=== PATIENT | female | born 1945 | race Two or more races ===

== ENCOUNTER 2016-04-21 10:59 | Inpatient (IN) | payer MEDICARE, MEDICAID ==
[~2016-04-21] VITALS: Ht 162.6 cm; Wt 59.0 kg
[2016-04-21] VITALS (7 sets, daily range): BP systolic 101–123; BP diastolic 52–83
[2016-04-21] MEDS ORDERED: GLIMEPIRIDE1 MG ORAL (11:12)
[2016-04-21] MEDS ORDERED: GABAPENTIN300 MG ORAL (11:12)
[2016-04-21] MEDS ORDERED: TYLENOL650 MG/20. ORAL (11:14)
[2016-04-21] MEDS ORDERED: Morphine Sulfate 4mg/ml Inj IVP ONE ×3 (11:15→17:30)
[2016-04-21 11:26] LABS: BASOPHILS % (AUTO) 0.9 % (0.0-2.0); EOSINOPHILS % (AUTO) 1.1 % (0.0-3.0); LYMPHOCYTES % (AUTO) 21.5 % (20.0-45.0); MEAN CORPUSCULAR HEMOGLOBIN 25.9 PG (27.0-31.0); MEAN CORPUSCULAR HGB CONC 30.2 G/DL (32.0-36.0); MEAN CORPUSCULAR VOLUME 86 FL (80-99); MEAN PLATELET VOLUME 6.8 FL (6.5-10.1); MONOCYTES % (AUTO) 4.2 % (1.0-10.0); NEUTROPHILS % (AUTO) 72.3 % (45.0-75.0); PLATELET COUNT 280 K/UL (150-450); RED BLOOD COUNT 4.74 M/UL (4.20-5.40); RED CELL DISTRIBUTION WIDTH 14.5 % (11.6-14.8); WHITE BLOOD COUNT 12.6 K/UL (4.8-10.8)
[2016-04-21 11:36] LABS: ALANINE AMINOTRANSFERASE 9 U/L (3-33); ALBUMIN/GLOBULIN RATIO 0.7 (1.0-2.7); ANION GAP 17 (5-15); ASPARTATE AMINO TRANSFERASE 21 U/L (5-40); CALCIUM 10.8 mg/dL (8.6-10.2); CARBON DIOXIDE 27 mEQ/L (20-30); CHLORIDE 97 mEQ/L (98-107); CREATININE 1.2 mg/dL (0.5-0.9); GLOMERULAR FILTRATION RATE 44.4 mL/min (>60); HEMOLYSIS 3; POTASSIUM 4.3 mEQ/L (3.4-4.9); SODIUM 141 mEQ/L (135-145); TOTAL PROTEIN 7.9 g/dL (6.6-8.7)
[2016-04-21 11:38] LABS: TROPONIN I < 0.30 ng/mL (<=0.30)
[2016-04-21 11:56] LABS: APPEARANCE,URINE TURBID; KETONES,URINE NEGATIVE (NEGATIVE); LEUKOCYTE ESTERASE ,URINE 3+ (NEGATIVE); NITRITE,URINE POSITIVE (NEGATIVE); PH,URINE 9 (4.5-8.0); PROTEIN,URINE 2+ (NEGATIVE); UROBILINOGEN,URINE NORMAL MG/DL (0.0-1.0)
--- NOTE | 2016-04-21 12:17 | Diagnostic Imaging Report ---
Indications: TRAUMA Technique: Two views of the left humerus Comparison: None Findings: There is a transverse fracture of the proximal left humeral shaft, displaced by about 5 mm. The edges are slightly irregular, although definite osteolytic lesion is not demonstrated The bones are osteoporotic. There are multiple old healed left rib fracture deformities. Impression: Positive for left proximal humeral shaft fracture. Although no definite osteolytic lesion is demonstrated, given the slightly irregular edges and history renal cell carcinoma, possibility of pathologic fracture should be entertained Findings discussed by phone with Dr. Williamson in the emergency room at the time of interpretation
[2016-04-21 12:27] LABS: BACTERIA,URINE MODERATE /HPF; RBC,URINE 0-2 /HPF (0 - 2); SQUAMOUS EPITHELIAL CELL,UR FEW /LPF (NONE/OCC); WBC,URINE 0-2 /HPF (0 - 2)
[2016-04-21 12:28] LABS: HYALINE CASTS, URINE 0-2 /LPF; TRIPLE PHOSPHATE CRYSTAL,UR FEW /LPF
[2016-04-21 12:51] LABS: ERYTHROCYTE SEDIMENTATION RATE 92 MM/HR (0-30)
[2016-04-21] MEDS ORDERED: DiphenhydrAMINE 50mg/ml Inj IVP ONE (18:30)
[2016-04-21] MEDS ORDERED: NS 50 ML IV ONE (20:38)
[2016-04-21] MEDS ORDERED: Morphine Sulfate 2mg/ml Inj IVP PRN (21:00)
[2016-04-22] VITALS (7 sets, daily range): BP systolic 100–137; BP diastolic 58–79
--- NOTE | 2016-04-22 00:36 | Emergency Room Report ---
History of Present Illness General Chief Complaint: General Complaint Source: Patient, Family Member, Medical Record Present Illness HPI Patient presents with 2 problems: 1. While turning over in bed last night, she leaned on her L arm and there was a snap. She had increased pain and has been unable to move the arm without severe pain. No numbness. H/O metastatic renal cell carcinoma on chemotherapy. Due for repeat staging workup. 2. While in MD office, had syncopal episode with pallor and MD/staff unable to detect blood pressure transiently (oncologist office). Patient does not remember this. Denies chest pain, palpitations, NVD, dysuria, fever, chills, URI sy, cough, dyspnea, QUINONES. Not eating well for several weeks. Allergies: Coded Allergies: No Known Allergies (Unverified , 04/21/16) Patient History Past Medical History: see triage record Social History: Denies: alcohol use, smoking Social History Narrative with family Reviewed Nursing Documentation: PMH: Agreed, PSxH: Agreed Nursing Documentation-PMH Hx Cardiac Problems: No Hx Hypertension: No Hx Pacemaker: No Hx Asthma: No Hx COPD: No Hx Diabetes: Yes Hx Cancer: Yes - chemo Hx Dialysis: No History Of Psychiatric Problem: Yes - depression Hx Neurological Problems: No Hx Cerebrovascular Accident: No Hx Seizures: No Review of Systems All Other Systems: negative except mentioned in HPI Physical Exam Vital Signs Date Time Temp Pulse Resp B/P Pulse Ox O2 Delivery O2 Flow Rate FiO2 04/21/16 10:59 98.1 84 16 123/64 98 Room Air Sp02 EP Interpretation: reviewed, normal General Appearance: well appearing, no apparent distress, GCS 15 Head: normocephalic Eyes: bilateral eye PERRL, bilateral eye normal inspection ENT: dry mucus membranes Neck: supple Respiratory: chest non-tender, lungs clear, normal breath sounds Cardiovascular #1: regular rate, rhythm Cardiovascular #2: 2+ radial (R) Gastrointestinal: normal inspection, normal bowel sounds, non tender, no mass, non-distended Musculoskeletal: back normal, gait/station normal, normal range of motion - except for L arm which has pain with palpation and any movement. Elbow and wrist without pain. Neurologic: alert, oriented x3, reclamation supervisor III-XII nml as tested, motor strength/tone normal, DTRs symmetric, sensory intact, cerebellar normal, speech normal Psychiatric: mood/affect normal Skin: normal inspection, warm/dry Medical Decision Making Diagnostic Impression: Primary Impression: Syncope Qualified Codes: R55 - Syncope and collapse Additional Impressions: Humerus fracture Qualified Codes: S42.295A - Other nondisplaced fracture of upper end of left humerus, initial encounter for closed fracture Renal call carcinoma ER Course Patient with L arm pain and syncope. Syncope needs evaluation with labs, EKG, CXR. Consider sepsis, arrhythmia, vasovagal. anemia amongst others. Also, exam c/w fracture. Complicated patient with several co-morbidities. Non-focal neuro against HIP HOP PERFORMERS etiology. Xray with fx. Suspect pathologic fracture based on mechanism of injury and appearance on films. Labs with elevated WBC. No pyuria, though + nitrates. Patient needs observation for syncope. Discussed with Dr. Toro, Dr. Linares who requests transfer to [facility]. Wants [facility] for possible tx of path fx. [facility] has no beds. Admit tele Dr. Huff (at request of PMD). Contacted Dr. Richey for consultation. Pain improved with several doses of morphine. Sling applied and neurovasc normal as checked by me. Laboratory Tests Test 04/21/16 11:10 04/21/16 11:30 White Blood Count 12.6 K/UL (4.8-10.8) H Red Blood Count 4.74 M/UL (4.20-5.40) Hemoglobin 12.3 G/DL (12.0-16.0) Hematocrit 40.7 % (37.0-47.0) Mean Corpuscular Volume 86 FL (80-99) Mean Corpuscular Hemoglobin 25.9 PG (27.0-31.0) L Mean Corpuscular Hemoglobin Concent 30.2 G/DL (32.0-36.0) L Red Cell Distribution Width 14.5 % (11.6-14.8) Platelet Count 280 K/UL (150-450) Mean Platelet Volume 6.8 FL (6.5-10.1) Neutrophils (%) (Auto) 72.3 % (45.0-75.0) Lymphocytes (%) (Auto) 21.5 % (20.0-45.0) Monocytes (%) (Auto) 4.2 % (1.0-10.0) Eosinophils (%) (Auto) 1.1 % (0.0-3.0) Basophils (%) (Auto) 0.9 % (0.0-2.0) Erythrocyte Sedimentation Rate 92 MM/HR (0-30) H Prothrombin Time 10.0 SEC (9.30-11.50) Prothrombin Time INR 1.0 (0.9-1.1) PTT 23 SEC (23-33) Sodium Level 141 mEQ/L (135-145) Potassium Level 4.3 mEQ/L (3.4-4.9) Chloride Level 97 mEQ/L (98-107) L Carbon Dioxide Level 27 mEQ/L (20-30) Anion Gap 17 (5-15) H Blood Urea Nitrogen 23 mg/dL (7-23) Creatinine 1.2 mg/dL (0.5-0.9) H Estimate Glomerular Filtration Rate 44.4 mL/min (>60) Glucose Level 268 mg/dL (74-106) H Calcium Level 10.8 mg/dL (8.6-10.2) H Total Bilirubin 0.3 mg/dL (0.0-1.2) Aspartate Amino Transferase (AST) 21 U/L (5-40) Alanine Aminotransferase (ALT) 9 U/L (3-33) Alkaline Phosphatase 149 U/L (35-104) H Total Creatine Kinase 19 U/L (26-140) L Troponin I < 0.30 ng/mL (<=0.30) Pro-B-Type Natriuretic Peptide 97 pg/mL (0-125) Total Protein 7.9 g/dL (6.6-8.7) Albumin 3.4 g/dL (3.5-5.2) L Globulin 4.5 g/dL Albumin/Globulin Ratio 0.7 (1.0-2.7) L Urine Color Yellow Urine Appearance Turbid Urine pH 9 (4.5-8.0) Urine Specific [place] 1.010 (1.005-1.035) Urine Protein 2+ (NEGATIVE) H Urine Glucose (UA) Negative (NEGATIVE) Urine Ketones Negative (NEGATIVE) Urine Occult Blood 1+ (NEGATIVE) H Urine Nitrite Positive (NEGATIVE) H Urine Bilirubin Negative (NEGATIVE) Urine Urobilinogen Normal MG/DL (0.0-1.0) Urine Leukocyte Esterase 3+ (NEGATIVE) H Urine RBC 0-2 /HPF (0 - 2) Urine WBC 0-2 /HPF (0 - 2) Urine Squamous Epithelial Cells Few /LPF (NONE/OCC) Urine Triple Phosphate Crystals Few /LPF (NONE) H Urine Bacteria Moderate /HPF (NONE) H Urine Hyaline Casts 0-2 /LPF (NONE) H EKG Diagnostic Results Rate: normal Rhythm: NSR ST Segments: no acute changes Rhythm Strip Diag. Results EP Interpretation: yes Rhythm: NSR, no PVC's, no ectopy Last Vital Signs Date Time Temp Pulse Resp B/P Pulse Ox O2 Delivery O2 Flow Rate FiO2 04/22/16 00:20 98.1 74 15 113/69 96 Room Air Status: improved Disposition: ADMITTED INPATIENT Condition: Serious Referrals: YOANA TORO (PCP) Sukhjinder Williamson M.D. Apr 22, 2016 00:36
[2016-04-22] MEDS: Morphine Sulfate 4mg/ml Inj IVP PRN ×2 (01:14→08:08)
[2016-04-22] MEDS: NovoLOG Insulin Flexpen SUBQ SCH ×5 (06:40→21:10)
[2016-04-22 08:07] LABS: BASOPHILS % (AUTO) 1.2 % (0.0-2.0); EOSINOPHILS % (AUTO) 5.3 % (0.0-3.0); LYMPHOCYTES % (AUTO) 40.9 % (20.0-45.0); MEAN CORPUSCULAR HEMOGLOBIN 26.5 PG (27.0-31.0); MEAN CORPUSCULAR HGB CONC 30.6 G/DL (32.0-36.0); MEAN CORPUSCULAR VOLUME 87 FL (80-99); MEAN PLATELET VOLUME 6.7 FL (6.5-10.1); MONOCYTES % (AUTO) 7.2 % (1.0-10.0); NEUTROPHILS % (AUTO) 45.3 % (45.0-75.0); PLATELET COUNT 231 K/UL (150-450); RED BLOOD COUNT 4.22 M/UL (4.20-5.40); RED CELL DISTRIBUTION WIDTH 14.6 % (11.6-14.8); WHITE BLOOD COUNT 7.3 K/UL (4.8-10.8)
[2016-04-22] MEDS: Heparin 5000 units/ml inj SUBQ SCH ×3 (08:09→21:09)
[2016-04-22 08:19] LABS: CALCIUM 10.2 mg/dL (8.6-10.2); GLOMERULAR FILTRATION RATE 54.8 mL/min (>60)
--- NOTE | 2016-04-22 16:21 | History & Physical ---
ANNETTE GALAVIZ M.D. Apr 22, 2016 16:21
--- NOTE | 2016-04-22 17:15 | History & Physical ---
History and Physical History & Physicial H&P dictated [id number] ANNETTE GALAVIZ M.D. Apr 22, 2016 17:15
[2016-04-22] MEDS ORDERED: Morphine Sulfate 2mg/ml Inj IVP PRN (17:30)
[2016-04-22] MEDS ORDERED: Morphine Sulfate 4mg/ml Inj IVP PRN (17:30)
[2016-04-22] MEDS: traMADol 50mg tab ORAL PRN (19:28)
--- NOTE | 2016-04-22 22:17 | Consultation ---
DATE OF CONSULTATION: 04/22/2016 ORTHOPEDIC CONSULTATION CONSULTING PHYSICIAN: Jurgen Richey M.D. REQUESTING PHYSICIAN: Sukhjinder Huff M.D. CHIEF COMPLAINT: Left arm pain. HISTORY OF PRESENT ILLNESS: The patient is 70-year-old female with a history of renal cell carcinoma, who had a pain in the left shoulder. She subsequently was brought to the emergency room where she was diagnosed with nondisplaced pathologic proximal humerus fracture. Orthopedic consultation was obtained for further care and recommendations. PAST MEDICAL HISTORY: Reviewed from the intake chart. PAST SURGICAL HISTORY: Reviewed from the intake chart. MEDICATIONS: Reviewed from the intake chart. PHYSICAL EXAMINATION: GENERAL: The patient is alert and oriented. She is resting comfortably in bed. VITAL SIGNS: Afebrile. Stable vital signs. EXTREMITIES: Left shoulder examination shows pain along the proximal humerus. NEUROVASCULAR: Normal. IMAGING: Imaging studies show what appears to be a transverse fracture of the proximal third of the humerus minimally displaced. ASSESSMENT: 1. Renal cell carcinoma. 2. Possible metastatic pathologic proximal humerus fracture. DISCUSSION: At this point, given her history of renal cell carcinoma, I think it is reasonable to transfer her to [facility] for a definitive operative treatment with either Dr. Cristiano Crowder or Dr. Sukhjinder Hargrove. Both are orthopedic tumor oncologist doctors, who currently take care of this. We will work on transfer accordingly. In the meantime, we will try to order Lu brace for comfort. Jurgen Richey M.D. DR: YOVANI JOB#: [id number] CC:
[2016-04-23 00:18] VITALS: BP 129/65
--- NOTE | 2016-04-23 03:28 | History and Physical Report ---
DATE OF ADMISSION: 04/21/2016 REASON FOR ADMISSION: Near syncope and pathological fracture of the left humerus. 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 Toro after the patient was reporting left arm pain for three days. The patient also had hypotension while at Dr. Toro's office with a blood pressure being so low. The patient had presyncope however, does not seen. She is currently getting chemotherapy with Dr. Toro for metastatic renal cancer. At this time, the patient only reports the left arm pain. She denies any shortness of breath or chest pain. X-ray done in the emergency room here at [facility] revealed a left proximal humeral shaft fracture that appears to be consistent with pathological fracture in patient with a malignant stage IV renal cell adenocarcinoma with mets to bone . PAST MEDICAL HISTORY: Includes stage IV renal cell adenocarcinoma with mets to the lungs, femur, knee, and spine and bilateral knee replacement. Recent removal of right knee hardware and synovial excision on 03/01/2016, diabetes, hypertension, chronic DVT of both legs, malnutrition, and anemia of chronic disease. PAST SURGICAL HISTORY: Bilateral total knee replacement as mentioned above. MEDICATIONS: Reviewed in the medical records. ALLERGIES: She has no allergies. SOCIAL HISTORY: The patient does not drink alcohol, smoke, or use any drugs. REVIEW OF SYSTEMS: A 10-point review of systems is negative except for pertinent positives as mentioned above. PHYSICAL EXAMINATION: VITAL SIGNS: Temperature is 98, pulse is 89, respiratory rate 18, blood pressure 116/67, and O2 saturation 95% on room air. GENERAL: The patient is no acute distress. The patient is awake, alert, and oriented x3. HEENT: Normocephalic/atraumatic. NECK: Supple. No JVD. LUNGS: Clear to auscultation bilaterally. No crackles, rhonchi, or rales. CARDIOVASCULAR: Regular rate and rhythm. Normal S1, S2. ABDOMEN: Soft, nontender, and nondistended. EXTREMITIES: Left arm in sling. PSYCHIATRIC: Appropriate mood and affect. NEUROLOGIC: The patient can move all extremities and has sensation . LABORATORY AND DIAGNOSTIC DATA: Sodium is 137, potassium 4, chloride 101, CO2 27, BUN 22, and creatinine 1. CBC, white count of 7.3, hemoglobin 11.2, hematocrit 36.5, and platelet count 231,000. ESR 92. UA is negative. X-ray of left arm shows left proximal humeral fracture possibly pathologic fracture. EKG shows normal sinus rhythm. No PVC. ASSESSMENT AND PLAN: 1. Left humeral shaft fracture most likely secondary to metastasis from renal cell cancer. 2. Malignant renal cell cancer with metastases to bone, lungs, femur, knee and spine. 3. Diabetes. 4. Hypertension. 5. Chronic deep venous thrombosis of legs. 6. Malnutrition. 7. Anemia of chronic disease. 8. Bilateral knee replacement. Decrease in right total knee replacement removal on 03/01/2016. 9. Presyncope secondary to hypotension. 10. Hypotension. PLAN: 1. Admit to med/surg. 2. CT of head given presyncope metastasis to rule out brain mets. 3. Orthopedic consult. 4. Pain management. 5. Oncology to follow. 6. The patient will eventually need to follow up with Dr. Cristiano Crowder for surgical repair. 7. CT head is pending. 8. Resume home medications. 9. Ultrasound of both lower extremities. Sukhjinder Huff MD DR: Jacqueline JOB#: [id number] CC:
[2016-04-23 04:32] VITALS: BP 121/64
[2016-04-23] MEDS: NovoLOG Insulin Flexpen SUBQ SCH ×4 (07:00→21:00)
[2016-04-23 07:58] VITALS: BP 133/68
[2016-04-23] MEDS: Heparin 5000 units/ml inj SUBQ SCH ×2 (09:20→21:20)
[2016-04-23] MEDS ORDERED: Norco 10mg/325mg tab ORAL PRN (09:45)
--- NOTE | 2016-04-23 09:46 | Consultation ---
History of Present Illness General Date patient seen: Apr 23, 2016 Chief Complaint: General Complaint Present Illness Allergies: Coded Allergies: No Known Allergies (Unverified , 04/21/16) Medication History Scheduled Gabapentin* (Gabapentin*), 300 MG ORAL BEDTIME, (Reported) Glimepiride* (Glimepiride*), 1 MG ORAL BEFORE BREAKFAST, (Reported) Scheduled PRN Acetaminophen (Acetaminophen), 500 MG ORAL Q6H PRN for Prn Headache/Temp > 101, (Reported) Patient History Healthcare decision maker Resuscitation status Full Code Advanced Directive on File Physical Exam Last 24 Hour Vital Signs Date Time Temp Pulse Resp B/P Pulse Ox O2 Delivery O2 Flow Rate FiO2 04/23/16 07:58 96.1 80 18 133/68 93 Room Air 04/23/16 04:32 98.3 80 18 121/64 94 Room Air 04/23/16 04:00 79 04/23/16 00:18 98.4 88 19 129/65 95 Room Air 04/23/16 00:00 89 04/22/16 20:00 98.5 85 18 120/68 95 Room Air 04/22/16 19:51 87 04/22/16 16:00 98.0 89 18 116/67 95 Room Air 04/22/16 15:49 92 04/22/16 12:11 97.0 84 18 137/79 97 Room Air 04/22/16 12:00 78 Intake and Output 04/22/16 04/23/16 18:59 06:59 Intake Total 1065 ml 375 ml Output Total 500 ml Balance 565 ml 375 ml Intake Oral 240 ml 300 ml IV Total 825 ml 75 ml Output Urine Total 500 ml # Voids 5 Height (Feet): 5 Height (Inches): 4.00 Weight (Pounds): 130 Medications Current Medications Medications (Trade) Dose Ordered Sig/Osiel Route PRN Reason Start Time Stop Time Status Last Admin Dose Admin Acetaminophen (Tylenol) 650 mg Q4H PRN ORAL FEVER 04/22/16 17:39 05/21/16 20:59 Dextrose (Dextrose 50%) STAT PRN IV Hypoglycemia 04/21/16 21:00 05/21/16 20:59 Gabapentin (Neurontin) 300 mg BEDTIME ORAL 04/21/16 21:00 05/21/16 20:59 Heparin Sodium (Porcine) (Heparin 5000 units/ml) 5,000 units EVERY 12 HOURS SUBQ 04/21/16 21:00 05/21/16 20:59 04/23/16 09:20 Insulin Aspart BEFORE MEALS AND HS SUBQ 04/21/16 21:00 05/21/16 20:59 04/23/16 07:00 Morphine Sulfate (Morphine Sulfate) 2 mg Q4HR PRN IVP Moderate Breakthru Pain (5-7) 04/22/16 17:30 04/29/16 17:29 Morphine Sulfate (Morphine Sulfate) 4 mg Q4HR PRN IVP Severe Breakthru Pain (>7) 04/22/16 17:30 04/29/16 17:29 Ondansetron HCl (Zofran ODT) 4 mg Q6H PRN ORAL Nausea & Vomiting 04/23/16 00:15 05/23/16 00:14 Oxycodone/ Acetaminophen (Percocet 10/325) 1 tab Q4H PRN ORAL moderate or severe pain 04/22/16 17:30 04/29/16 17:29 Sodium Chloride (Sodium Chloride 1000ml bag) 1,000 ml @ 75 mls/hr [id number] IV 04/21/16 21:00 05/21/16 20:59 04/22/16 10:24 Tramadol HCl (Ultram) 100 mg Q6H PRN ORAL Mild Pain (Pain Scale 1-3) 04/22/16 17:30 04/29/16 17:29 04/22/16 19:28 Assessment/Plan Assessment/Plan (1) Left humeral shaft fracture most likely secondary to metastasis from renal cell cancer (2) Malignant renal cell cancer with metastases to bone, lungs (3) Left Upper Extremity pain Seen dictated ALEXUS SWARTZ Apr 23, 2016 09:46
[2016-04-23 11:30] VITALS: BP 146/81
--- NOTE | 2016-04-23 12:28 | Consultation ---
DATE OF CONSULTATION: 04/23/2016 PAIN MANAGEMENT CONSULTATION: CONSULTING PHYSICIAN: Santy Satcy M.D. REFERRING PHYSICIAN: Sukhjinder Martinez M.D. CHIEF COMPLAINT: Left upper extremity pain. HISTORY OF PRESENT ILLNESS: This is a 70-year-old female, who is being seen on the telemetry floor of [facility] for initial complaints of pain management. The patient has a history of renal cell adenocarcinoma with metastasis to the lungs and bone and was found to have a syncopal episode due to low blood pressure and is receiving chemotherapy with tenderness here complaining of left upper extremity pain and was found to have left proximal hemostat fracture, which is concerned with pathological fracture and has been seen by Dr. Richey orthopedic surgeon, who would like to transfer the patient to [facility] for higher level of care due to the pathological fracture and at this time, the patient was on a morphine 2 to 4 mg IV every four hours as needed for moderate and severe breakthrough pain, Percocet 10/325 mg one tablet every four hours as needed for moderate or severe pain, tramadol 100 mg tablet every six hours as needed for mild pain. The patient is comfortable in bed at this time. Discussed care with patient's daughter and the patient has no other complaints at this time. PAST MEDICAL HISTORY: Renal cell adenocarcinoma, metastasis to the lung and bone, diabetes, hypertension, chronic DVT, malnutrition, and anemia of chronic disease. PAST SURGICAL HISTORY: Bilateral knee replacement and removal of hardware in the right knee. SOCIAL HISTORY: Denies smoking, tobacco, drinking alcohol, or drug abuse. ALLERGIES: No known drug allergies. MEDICATIONS: Neurontin, glyburide, and [place]. REVIEW OF SYSTEMS: Denies rash, fever, chills, sweating, dizziness, drowsiness, blurred vision, sore throat, or change in her weight. No shortness of breath or chest pain. No nausea, vomiting, or blood in stool or urine. No bowel or bladder. There is no dysuria. She is complaining of left upper extremity pain and generalized weakness. PHYSICAL EXAMINATION: GENERAL: Alert, awake, and oriented. The patient is Romanian speaking and be interpreted. VITAL SIGNS: Blood pressure 133/68, heart rate is 80, oxygen 92%, respirations 18, temperature 97.1 degrees Fahrenheit. Height 5 feet 4 inches and weight is 130 pounds. NECK: Range of motion is full in all directions. No tenderness. No adenopathy. LUNGS: Decreased breath sounds bilaterally. ABDOMEN: Tenderness to palpation. BACK: Range of motion is decreased in flexion and extension with tenderness to paraspinal muscles. No tenderness to trapezius or rhomboid muscles. EXTREMITIES: Upper extremity motion is decreased due to the patient's clinical condition with tenderness to palpation in the left upper extremity in sling at this time. No cyanosis. No clubbing. With edema noted. Sensory is reduced. No adenopathy. Lower extremity motion is decreased due to the patient's clinical condition. No cyanosis. No clubbing. No edema. Sensory is intact. Reflexes are not obtainable. ASSESSMENT AND PLAN: This is a 70-year-old female with 1. Left humeral skull fracture most likely secondary to metastasis from renal cell cancer. 2. Malignant renal cell cancer with metastasis to the bone and lungs. 3. Left upper extremity pain. The patient will be discontinued off the morphine intravenous. Continue the Percocet 10/325 mg one tablet every four hours as needed for mild pain and tramadol 100 mg tablet every six hours as needed for mild pain and will be started on [place] 10/325 mg one tablet every six hours as needed for moderate pain. The patient's care again was discussed with daughter. Orthopedic surgeon has seen the patient who would like to transfer the patient to [facility] for higher level of care due to pathological fracture in the left upper extremity. The patient was discussed with Dr. Irvin and Dr. Irvin concurred. We will follow the patient. Thank you very much for the courtesy of this consultation. Sukhjinder Huff MD JINA Forte DR: NANDO JOB#: [id number] CC: JOSE ROBERTO
[2016-04-23 16:00] VITALS: BP 112/69
--- NOTE | 2016-04-23 18:18 | Internal Med Progress Note ---
Subjective Date of Service: Apr 23, 2016 Physician Name Steven Ching Attending Physician Sukhjinder Huff M.D. Current Medications Medications (Trade) Dose Ordered Sig/Osiel Route PRN Reason Start Time Stop Time Status Last Admin Dose Admin Acetaminophen (Tylenol) 650 mg Q4H PRN ORAL FEVER 04/22/16 17:39 05/21/16 20:59 Acetaminophen/ Hydrocodone Bitart ([place] 10/325) 1 ea Q6H PRN ORAL moderate pain 04/23/16 09:45 04/30/16 09:44 Dextrose (Dextrose 50%) STAT PRN IV Hypoglycemia 04/21/16 21:00 05/21/16 20:59 Gabapentin (Neurontin) 300 mg BEDTIME ORAL 04/21/16 21:00 05/21/16 20:59 Heparin Sodium (Porcine) (Heparin 5000 units/ml) 5,000 units EVERY 12 HOURS SUBQ 04/21/16 21:00 05/21/16 20:59 04/23/16 09:20 Insulin Aspart BEFORE MEALS AND HS SUBQ 04/21/16 21:00 05/21/16 20:59 04/23/16 11:34 Lidocaine (Lidoderm 5% PATCH) 1 patch DAILY TDERMAL 04/23/16 11:00 05/23/16 10:59 04/23/16 11:00 Ondansetron HCl (Zofran ODT) 4 mg Q6H PRN ORAL Nausea & Vomiting 04/23/16 00:15 05/23/16 00:14 Oxycodone/ Acetaminophen (Percocet 10/325) 1 tab Q4H PRN ORAL severe pain 04/23/16 13:30 04/30/16 13:29 04/23/16 12:37 Sodium Chloride (Sodium Chloride 1000ml bag) 1,000 ml @ 75 mls/hr [id number] IV 04/21/16 21:00 05/21/16 20:59 04/23/16 12:38 Tramadol HCl (Ultram) 100 mg Q6H PRN ORAL Mild Pain (Pain Scale 1-3) 04/22/16 17:30 04/29/16 17:29 04/22/16 19:28 Allergies: Coded Allergies: No Known Allergies (Unverified , 04/21/16) ROS Limited/Unobtainable: No Constitutional: Reports: no symptoms HEENT: Reports: no symptoms Cardiovascular: Reports: no symptoms Gastrointestinal/Abdominal: Reports: no symptoms Genitourinary: Reports: no symptoms Neurologic/Psychiatric: Reports: no symptoms Subjective 70 YO F with pathologic fracture left humerus and renal cell cancer. Cover for Int Med-Dr Huff. C/O left arm pain. Objective Last Vital Signs Date Time Temp Pulse Resp B/P Pulse Ox O2 Delivery O2 Flow Rate FiO2 04/23/16 16:00 97.9 88 20 112/69 97 Room Air General Appearance: WD/WN, alert, mild distress EENT: normal ENT inspection Neck: non-tender, normal alignment, supple Cardiovascular: normal peripheral pulses, normal rate, regular rhythm, no gallop/murmur, no JVD Respiratory/Chest: chest wall non-tender, no accessory muscle use, decreased breath sounds, crackles/rales, rhonchi - bilaterally, expiratory wheezing Abdomen: normal bowel sounds, non tender, soft, no organomegaly, no mass Extremities: normal range of motion, other - left arm pain Neurologic: orthodontic laboratory technician II-XII grossly normal, no motor/sensory deficits Skin: normal pigmentation, warm/dry Microbiology Date/Time Source Procedure Growth Status 04/21/16 14:20 Blood Blood Culture - Preliminary NO GROWTH AFTER 24 HOURS Resulted 04/21/16 14:00 Blood Blood Culture - Preliminary Staphylococcus Sp Coag Neg Resulted 04/21/16 11:30 Urine,Clean Catch Urine Culture - Preliminary Gram Negative Bacillus 1 Resulted Intake and Output 04/22/16 04/23/16 19:00 07:00 Intake Total 1065 ml 375 ml Output Total 500 ml Balance 565 ml 375 ml Intake Oral 240 ml 300 ml IV Total 825 ml 75 ml Output Urine Total 500 ml # Voids 5 Assessment/Plan Problem List: (1) 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 Currently on chemotherapy. See onc note. (2) Diabetes mellitus Assessment & Plan: Cont novolog sliding scale. (3) HTN (hypertension) Assessment & Plan: Admitted with hypotension. (4) Deep venous thrombosis of both lower extremities (5) Humerus fracture Assessment & Plan: See ortho note. Needs orthopedic tumor oncologist consult at [facility] (6) Pathologic fracture (7) Pre-syncope Assessment & Plan: Await CT brain to rule out mets. Status: not improved STEVEN CHING Apr 23, 2016 18:18
[2016-04-23 20:00] VITALS: BP 137/79
[2016-04-24 00:29] VITALS: BP 125/70
[2016-04-24 04:27] VITALS: BP 128/79
[2016-04-24] MEDS: NovoLOG Insulin Flexpen SUBQ SCH ×4 (06:23→20:46)
[2016-04-24 06:47] LABS: BASOPHILS % (AUTO) 1.6 % (0.0-2.0); EOSINOPHILS % (AUTO) 4.8 % (0.0-3.0); LYMPHOCYTES % (AUTO) 39.7 % (20.0-45.0); MEAN CORPUSCULAR HEMOGLOBIN 26.1 PG (27.0-31.0); MEAN CORPUSCULAR HGB CONC 30.2 G/DL (32.0-36.0); MEAN CORPUSCULAR VOLUME 87 FL (80-99); MEAN PLATELET VOLUME 6.6 FL (6.5-10.1); MONOCYTES % (AUTO) 7.1 % (1.0-10.0); NEUTROPHILS % (AUTO) 46.8 % (45.0-75.0); PLATELET COUNT 226 K/UL (150-450); RED BLOOD COUNT 3.61 M/UL (4.20-5.40); RED CELL DISTRIBUTION WIDTH 13.8 % (11.6-14.8); WHITE BLOOD COUNT 6.7 K/UL (4.8-10.8)
[2016-04-24 07:04] LABS: ANION GAP 11 (5-15); CALCIUM 9.7 mg/dL (8.6-10.2); CARBON DIOXIDE 24 mEQ/L (20-30); CHLORIDE 106 mEQ/L (98-107); CREATININE 0.8 mg/dL (0.5-0.9); GLOMERULAR FILTRATION RATE > 60 mL/min (>60); HEMOLYSIS 5; POTASSIUM 4.6 mEQ/L (3.4-4.9); SODIUM 141 mEQ/L (135-145)
[2016-04-24 08:00] VITALS: BP 127/78
[2016-04-24] MEDS: Heparin 5000 units/ml inj SUBQ SCH ×2 (08:28→20:46)
[2016-04-24 12:00] VITALS: BP 135/73
--- NOTE | 2016-04-24 13:37 | Internal Med Progress Note ---
Subjective Date of Service: Apr 24, 2016 Physician Name Steven Ching Attending Physician Sukhjinder Huff M.D. Current Medications Medications (Trade) Dose Ordered Sig/Osiel Route PRN Reason Start Time Stop Time Status Last Admin Dose Admin Acetaminophen (Tylenol) 650 mg Q4H PRN ORAL FEVER 04/22/16 17:39 05/21/16 20:59 Acetaminophen/ Hydrocodone Bitart ([place] 10/325) 1 ea Q6H PRN ORAL moderate pain 04/23/16 09:45 04/30/16 09:44 Dextrose (Dextrose 50%) STAT PRN IV Hypoglycemia 04/21/16 21:00 05/21/16 20:59 Gabapentin (Neurontin) 300 mg BEDTIME ORAL 04/21/16 21:00 05/21/16 20:59 04/23/16 21:18 Heparin Sodium (Porcine) (Heparin 5000 units/ml) 5,000 units EVERY 12 HOURS SUBQ 04/21/16 21:00 05/21/16 20:59 04/24/16 08:28 Insulin Aspart BEFORE MEALS AND HS SUBQ 04/21/16 21:00 05/21/16 20:59 04/24/16 12:23 Lidocaine (Lidoderm 5% PATCH) 1 patch DAILY TDERMAL 04/23/16 11:00 05/23/16 10:59 04/24/16 08:31 Ondansetron HCl (Zofran ODT) 4 mg Q6H PRN ORAL Nausea & Vomiting 04/23/16 00:15 05/23/16 00:14 Oxycodone/ Acetaminophen (Percocet 10/325) 1 tab Q4H PRN ORAL severe pain 04/23/16 13:30 04/30/16 13:29 04/24/16 03:20 Sodium Chloride (Sodium Chloride 1000ml bag) 1,000 ml @ 75 mls/hr [id number] IV 04/21/16 21:00 05/21/16 20:59 04/24/16 02:12 Tramadol HCl (Ultram) 100 mg Q6H PRN ORAL Mild Pain (Pain Scale 1-3) 04/22/16 17:30 04/29/16 17:29 04/22/16 19:28 Allergies: Coded Allergies: No Known Allergies (Unverified , 04/21/16) Subjective 70 YO F with pathologic fracture left humerus and renal cell cancer. Cover for Int Med-Dr Huff. C/O left arm pain. Objective Last Vital Signs Date Time Temp Pulse Resp B/P Pulse Ox O2 Delivery O2 Flow Rate FiO2 04/24/16 08:00 97.3 75 18 127/78 97 Room Air Laboratory Tests Test 04/24/16 06:00 White Blood Count 6.7 K/UL (4.8-10.8) Red Blood Count 3.61 M/UL (4.20-5.40) L Hemoglobin 9.4 G/DL (12.0-16.0) L Hematocrit 31.3 % (37.0-47.0) L Mean Corpuscular Volume 87 FL (80-99) Mean Corpuscular Hemoglobin 26.1 PG (27.0-31.0) L Mean Corpuscular Hemoglobin Concent 30.2 G/DL (32.0-36.0) L Red Cell Distribution Width 13.8 % (11.6-14.8) Platelet Count 226 K/UL (150-450) Mean Platelet Volume 6.6 FL (6.5-10.1) Neutrophils (%) (Auto) 46.8 % (45.0-75.0) Lymphocytes (%) (Auto) 39.7 % (20.0-45.0) Monocytes (%) (Auto) 7.1 % (1.0-10.0) Eosinophils (%) (Auto) 4.8 % (0.0-3.0) H Basophils (%) (Auto) 1.6 % (0.0-2.0) Sodium Level 141 mEQ/L (135-145) Potassium Level 4.6 mEQ/L (3.4-4.9) Chloride Level 106 mEQ/L (98-107) Carbon Dioxide Level 24 mEQ/L (20-30) Anion Gap 11 (5-15) Blood Urea Nitrogen 15 mg/dL (7-23) Creatinine 0.8 mg/dL (0.5-0.9) Estimat Glomerular Filtration Rate > 60 mL/min (>60) Glucose Level 101 mg/dL (74-106) Calcium Level 9.7 mg/dL (8.6-10.2) Microbiology Date/Time Source Procedure Growth Status 04/21/16 14:20 Blood Blood Culture - Preliminary NO GROWTH AFTER 48 HOURS Resulted 04/21/16 14:00 Blood Blood Culture - Final Staphylococcus Sp Coag Neg Complete Intake and Output 04/23/16 04/24/16 19:00 07:00 Intake Total 1015 ml 1172.5 ml Output Total 400 ml Balance 615 ml 1172.5 ml Intake Oral 240 ml 260 ml IV Total 775 ml 912.5 ml Output Urine Total 400 ml # Voids 2 Objective General Appearance: WD/WN, alert, mild distress EENT: normal ENT inspection Neck: non-tender, normal alignment, supple Cardiovascular: normal peripheral pulses, normal rate, regular rhythm, no gallop/murmur, no JVD Respiratory/Chest: chest wall non-tender, no accessory muscle use, decreased breath sounds, crackles/rales, rhonchi - bilaterally, expiratory wheezing Abdomen: normal bowel sounds, non tender, soft, no organomegaly, no mass Extremities: normal range of motion, other - left arm pain 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 Currently on chemotherapy. See onc note. (2) Diabetes mellitus Assessment & Plan: Cont novolog sliding scale. (3) HTN (hypertension) Assessment & Plan: Admitted with hypotension. (4) Deep venous thrombosis of both lower extremities (5) Humerus fracture Assessment & Plan: See ortho note. Needs orthopedic tumor oncologist consult at [facility] (6) Pathologic fracture (7) Pre-syncope Assessment & Plan: Await CT brain to rule out mets. Assessment/Plan Transfer to [facility] when bed available. STEVEN CHING Apr 24, 2016 13:37
[2016-04-24 16:00] VITALS: BP_SYST 132; BP_SYST 139; BP_DIAS 70; BP_DIAS 80
[2016-04-24] MEDS: traMADol 50mg tab ORAL PRN (18:52)
[2016-04-24 20:00] VITALS: BP 144/73
[2016-04-25] VITALS: BP 162/77
[2016-04-25 04:00] VITALS: BP 141/73
[2016-04-25] MEDS: NovoLOG Insulin Flexpen SUBQ SCH ×4 (06:30→22:30)
[2016-04-25 07:46] LABS: BASOPHILS % (AUTO) 1.6 % (0.0-2.0); EOSINOPHILS % (AUTO) 5.8 % (0.0-3.0); LYMPHOCYTES % (AUTO) 44.8 % (20.0-45.0); MEAN CORPUSCULAR HEMOGLOBIN 27.3 PG (27.0-31.0); MEAN CORPUSCULAR HGB CONC 31.6 G/DL (32.0-36.0); MEAN CORPUSCULAR VOLUME 86 FL (80-99); MEAN PLATELET VOLUME 7.1 FL (6.5-10.1); MONOCYTES % (AUTO) 6.8 % (1.0-10.0); PLATELET COUNT 223 K/UL (150-450); RED BLOOD COUNT 3.82 M/UL (4.20-5.40); RED CELL DISTRIBUTION WIDTH 14.4 % (11.6-14.8); WHITE BLOOD COUNT 5.9 K/UL (4.8-10.8)
[2016-04-25 08:00] VITALS: BP 125/74
[2016-04-25 08:11] LABS: ANION GAP 13 (5-15); CARBON DIOXIDE 25 mEQ/L (20-30); CHLORIDE 101 mEQ/L (98-107); CREATININE 0.8 mg/dL (0.5-0.9); GLOMERULAR FILTRATION RATE > 60 mL/min (>60); HEMOLYSIS 6; POTASSIUM 3.9 mEQ/L (3.4-4.9); SODIUM 139 mEQ/L (135-145)
[2016-04-25] MEDS: Heparin 5000 units/ml inj SUBQ SCH ×2 (08:38→22:28)
--- NOTE | 2016-04-25 10:15 | General Progress Note ---
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 Pt was d/w Dr. Irvin and he concurred. Subjective Date patient seen: Apr 25, 2016 Time patient seen: 08:00 - am Allergies: Coded Allergies: No Known Allergies (Unverified , 04/21/16) Subjective REVIEW OF SYSTEMS: Denies rash, fever, chills, sweating, dizziness, drowsiness, blurred vision, sore throat, or change in her weight. No shortness of breath or chest pain. No nausea, vomiting, or blood in stool or urine. No bowel or bladder. There is no dysuria. She is complaining of left upper extremity pain and generalized weakness. SUBJECTIVE: Patient is being interpreted due to speaking Japanese. Pain has been tolerated on the [place], Percocet and tramadol as needed. Objective Last 24 Hour Vital Signs Date Time Temp Pulse Resp B/P Pulse Ox O2 Delivery O2 Flow Rate FiO2 04/25/16 08:00 74 04/25/16 04:00 97.5 74 18 141/73 98 Room Air 04/25/16 04:00 71 04/25/16 00:00 97.2 75 16 162/77 94 Room Air 04/25/16 00:00 71 04/24/16 20:00 98.1 72 21 144/73 94 Room Air 04/24/16 20:00 72 04/24/16 16:00 97.9 88 20 139/80 98 Room Air 04/24/16 16:00 89 04/24/16 15:56 97.9 04/24/16 12:00 83 04/24/16 12:00 97.5 78 18 135/73 98 Room Air Intake and Output 04/24/16 04/25/16 19:00 07:00 Intake Total 1400 ml 1327 ml Balance 1400 ml 1327 ml Intake Oral 500 ml 440 ml IV Total 900 ml 887 ml # Voids 4 5 Laboratory Tests 04/25/16 06:50: White Blood Count 5.9, Red Blood Count 3.82L, Hemoglobin 10.4L, Hematocrit 33.0L , Mean Corpuscular Volume 86, Mean Corpuscular Hemoglobin 27.3, Mean Corpuscular Hemoglobin Concent 31.6L, Red Cell Distribution Width 14.4, Platelet Count 223, Mean Platelet Volume 7.1, Neutrophils (%) (Auto) 41.0L, Lymphocytes (%) (Auto) 44.8, Monocytes (%) (Auto) 6.8, Eosinophils (%) (Auto) 5.8H, Basophils (%) (Auto) 1.6, Sodium Level 139, Potassium Level 3.9, Chloride Level 101, Carbon Dioxide Level 25, Anion Gap 13, Blood Urea Nitrogen 11, Creatinine 0.8, Estimat Glomerular Filtration Rate > 60, Glucose Level 97, Calcium Level 10.0 Height (Feet): 5 Height (Inches): 4.00 Weight (Pounds): 130 Objective PHYSICAL EXAMINATION: GENERAL: Alert, awake, and oriented. The patient is Japanese speaking and be interpreted. VITAL SIGNS: Blood pressure 133/68, heart rate is 80, oxygen 92%, respirations 18, temperature 97.1 degrees Fahrenheit. Height 5 feet 4 inches and weight is 130 pounds. NECK: Range of motion is full in all directions. No tenderness. No adenopathy. LUNGS: Decreased breath sounds bilaterally. ABDOMEN: Tenderness to palpation. BACK: Range of motion is decreased in flexion and extension with tenderness to paraspinal muscles. No tenderness to trapezius or rhomboid muscles. EXTREMITIES: No cyanosis. No clubbing. With edema noted. NEURO: No changes. ALEXUS SWARTZ Apr 25, 2016 10:15
--- NOTE | 2016-04-25 10:32 | Diagnostic Imaging Report ---
Indication: TRAUMA, chest pain Technique: One view of the chest Comparison: none Findings: There is atelectasis of the left lung base. Lungs and pleural space are otherwise clear. Aorta is tortuous ectatic and calcified. There is an old healed fracture deformity of the right distal clavicle Impression: No acute process Findings as noted
--- NOTE | 2016-04-25 10:33 | Diagnostic Imaging Report ---
Indications: Syncope, history of renal cell carcinoma Technique: Continuous helical CT imaging of the brain was performed with automatic exposure control both before and after intravenous administration of nonionic iodine contrast, on a Siemens sensation [address] scanner. Axial and coronal images were reconstructed at 5 mm slice thickness and interval. CTDI volume(s): 70x2, 17, 198 mGy Total DLP: 2919 mGy-cm Findings: Comparison: None. Intracranial anatomy is unremarkable. No evidence of mass or hemorrhage, other attenuation abnormality, mass effect, midline shift, hydrocephalus or increased intracranial pressure. Normal vascular enhancement. No abnormal enhancement. Bone window images are unremarkable. Prominent central arterial mural calcification. IMPRESSION: Arteriosclerosis Otherwise negative CT scan of the brain without and with IV contrast --no evidence of metastatic neoplasm or acute abnormality. This correlates with [facility] preliminary report. The CT scanner at [facility] is accredited by the [employer] and the scans are performed using protocols designed to limit radiation exposure to as low as reasonably achievable to attain images of sufficient resolution adequate for diagnostic evaluation.
[2016-04-25] MEDS ORDERED: traMADol 50mg tab ORAL PRN ×2 (11:30)
[2016-04-25 12:00] VITALS: BP 143/76
--- NOTE | 2016-04-25 15:07 | Cardiology Report ---
APPROVED REPORT EKG Measurement Heart [id number] Normal sinus rhythm Possible Inferior infarct, age undetermined Abnormal ECG
[2016-04-25 16:00] VITALS: BP 144/69
--- NOTE | 2016-04-25 16:25 | Internal Med Progress Note ---
Subjective Date of Service: Apr 25, 2016 Physician Name Christiano Ching Attending Physician Sukhjinder Huff M.D. Current Medications Medications (Trade) Dose Ordered Sig/Osiel Route PRN Reason Start Time Stop Time Status Last Admin Dose Admin Acetaminophen (Tylenol) 650 mg Q4H PRN ORAL FEVER 04/22/16 17:39 05/21/16 20:59 Acetaminophen/ Hydrocodone Bitart ([place] 10/325) 1 ea Q6H PRN ORAL moderate pain 04/23/16 09:45 04/30/16 09:44 Dextrose (Dextrose 50%) STAT PRN IV Hypoglycemia 04/21/16 21:00 05/21/16 20:59 Gabapentin (Neurontin) 300 mg BEDTIME ORAL 04/21/16 21:00 05/21/16 20:59 04/24/16 20:45 Heparin Sodium (Porcine) (Heparin 5000 units/ml) 5,000 units EVERY 12 HOURS SUBQ 04/21/16 21:00 05/21/16 20:59 04/25/16 08:38 Insulin Aspart BEFORE MEALS AND HS SUBQ 04/21/16 21:00 05/21/16 20:59 04/24/16 16:21 Lidocaine (Lidoderm 5% PATCH) 1 patch DAILY TDERMAL 04/23/16 11:00 05/23/16 10:59 04/25/16 08:33 Ondansetron HCl (Zofran ODT) 4 mg Q6H PRN ORAL Nausea & Vomiting 04/23/16 00:15 05/23/16 00:14 Oxycodone/ Acetaminophen (Percocet 10/325) 1 tab Q4H PRN ORAL severe pain 04/23/16 13:30 04/30/16 13:29 04/25/16 13:22 Sodium Chloride (Sodium Chloride 1000ml bag) 1,000 ml @ 75 mls/hr [id number] IV 04/21/16 21:00 05/21/16 20:59 04/25/16 06:52 Tramadol HCl (Ultram) 100 mg Q6H PRN ORAL Mild Pain (Pain Scale 1-3) 04/25/16 11:30 05/02/16 11:29 04/25/16 10:22 Allergies: Coded Allergies: No Known Allergies (Unverified , 04/21/16) ROS Limited/Unobtainable: No Constitutional: Reports: no symptoms HEENT: Reports: no symptoms Cardiovascular: Reports: no symptoms Respiratory: Reports: no symptoms Gastrointestinal/Abdominal: Reports: no symptoms Genitourinary: Reports: no symptoms Neurologic/Psychiatric: Reports: no symptoms Subjective 70 YO F with pathologic fracture left humerus and renal cell cancer. Cover for Int [place]-Dr Huff. C/O left arm pain. Objective Last Vital Signs Date Time Temp Pulse Resp B/P Pulse Ox O2 Delivery O2 Flow Rate FiO2 04/25/16 16:00 97.3 72 18 144/69 90 Room Air Laboratory Tests Test 04/25/16 06:50 White Blood Count 5.9 K/UL (4.8-10.8) Red Blood Count 3.82 M/UL (4.20-5.40) L Hemoglobin 10.4 G/DL (12.0-16.0) L Hematocrit 33.0 % (37.0-47.0) L Mean Corpuscular Volume 86 FL (80-99) Mean Corpuscular Hemoglobin 27.3 PG (27.0-31.0) Mean Corpuscular Hemoglobin Concent 31.6 G/DL (32.0-36.0) L Red Cell Distribution Width 14.4 % (11.6-14.8) Platelet Count 223 K/UL (150-450) Mean Platelet Volume 7.1 FL (6.5-10.1) Neutrophils (%) (Auto) 41.0 % (45.0-75.0) L Lymphocytes (%) (Auto) 44.8 % (20.0-45.0) Monocytes (%) (Auto) 6.8 % (1.0-10.0) Eosinophils (%) (Auto) 5.8 % (0.0-3.0) H Basophils (%) (Auto) 1.6 % (0.0-2.0) Sodium Level 139 mEQ/L (135-145) Potassium Level 3.9 mEQ/L (3.4-4.9) Chloride Level 101 mEQ/L (98-107) Carbon Dioxide Level 25 mEQ/L (20-30) Anion Gap 13 (5-15) Blood Urea Nitrogen 11 mg/dL (7-23) Creatinine 0.8 mg/dL (0.5-0.9) Estimat Glomerular Filtration Rate > 60 mL/min (>60) Glucose Level 97 mg/dL (74-106) Calcium Level 10.0 mg/dL (8.6-10.2) Intake and Output 04/24/16 04/25/16 19:00 07:00 Intake Total 1400 ml 1327 ml Balance 1400 ml 1327 ml Intake Oral 500 ml 440 ml IV Total 900 ml 887 ml # Voids 4 5 Objective General Appearance: WD/WN, alert, mild distress EENT: normal ENT inspection Neck: non-tender, normal alignment, supple Cardiovascular: normal peripheral pulses, normal rate, regular rhythm, no gallop/murmur, no JVD Respiratory/Chest: chest wall non-tender, no accessory muscle use, decreased breath sounds, crackles/rales, rhonchi - bilaterally, expiratory wheezing Abdomen: normal bowel sounds, non tender, soft, no organomegaly, no mass Extremities: normal range of motion, other - left arm pain 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 Currently on chemotherapy. See onc note. (2) Diabetes mellitus Assessment & Plan: Cont novolog sliding scale. (3) HTN (hypertension) Assessment & Plan: Admitted with hypotension. (4) Deep venous thrombosis of both lower extremities (5) Humerus fracture Assessment & Plan: See ortho note. Needs orthopedic tumor oncologist consult at [facility] (6) Pathologic fracture (7) Pre-syncope Assessment & Plan: Await CT brain to rule out mets. Assessment/Plan Transfer to [facility] when bed available-see systems planner note. CHRISTIANO CHING Apr 25, 2016 16:25
[2016-04-25 20:00] VITALS: BP 128/72
[2016-04-26 00:20] VITALS: BP 118/60
[2016-04-26 04:00] VITALS: BP 131/68
[2016-04-26] MEDS: NovoLOG Insulin Flexpen SUBQ SCH ×4 (06:41→20:11)
[2016-04-26 08:06] VITALS: BP 112/56
[2016-04-26 08:25] LABS: BASOPHILS % (AUTO) 1.7 % (0.0-2.0); EOSINOPHILS % (AUTO) 6.4 % (0.0-3.0); MEAN CORPUSCULAR HGB CONC 30.2 G/DL (32.0-36.0); MEAN CORPUSCULAR VOLUME 86 FL (80-99); MEAN PLATELET VOLUME 6.5 FL (6.5-10.1); PLATELET COUNT 216 K/UL (150-450); RED BLOOD COUNT 3.74 M/UL (4.20-5.40); RED CELL DISTRIBUTION WIDTH 14.6 % (11.6-14.8); WHITE BLOOD COUNT 5.5 K/UL (4.8-10.8)
[2016-04-26] MEDS: Heparin 5000 units/ml inj SUBQ SCH ×2 (08:28→20:10)
--- NOTE | 2016-04-26 08:31 | General Progress Note ---
Assessment/Plan Assessment/Plan (1) Left humeral shaft fracture most likely secondary to metastasis from renal cell cancer (2) Malignant renal cell cancer with metastases to bone, lungs (3) Left Upper Extremity pain Pt will be continued on Tramadol, [place] and Percocet. Pt was d/w Dr. Irvin and he concurred. Subjective Date patient seen: Apr 26, 2016 Time patient seen: 07:00 - am Allergies: Coded Allergies: No Known Allergies (Unverified , 04/21/16) Subjective REVIEW OF SYSTEMS: Denies rash, fever, chills, sweating, dizziness, drowsiness, blurred vision, sore throat, or change in her weight. No shortness of breath or chest pain. No nausea, vomiting, or blood in stool or urine. No bowel or bladder. There is no dysuria. She is complaining of left upper extremity pain and generalized weakness. SUBJECTIVE: Patient is being interpreted due to speaking Brazilian. Her pain has been tolerated on the medications. Objective Last 24 Hour Vital Signs Date Time Temp Pulse Resp B/P Pulse Ox O2 Delivery O2 Flow Rate FiO2 04/26/16 08:06 96.6 63 18 112/56 97 Room Air 04/26/16 04:00 61 04/26/16 04:00 97.0 67 20 131/68 97 Room Air 04/26/16 00:20 97.7 66 20 118/60 96 Room Air 04/26/16 00:00 74 04/25/16 20:42 97.7 04/25/16 20:00 97.7 70 18 128/72 89 Room Air 04/25/16 20:00 69 04/25/16 16:00 68 04/25/16 16:00 97.3 72 18 144/69 90 Room Air 04/25/16 12:00 84 04/25/16 12:00 97.1 75 20 143/76 98 Room Air Intake and Output 04/25/16 04/26/16 19:00 07:00 Intake Total 1075 ml 900 ml Output Total 2 ml Balance 1075 ml 898 ml Intake Oral 250 ml IV Total 825 ml 900 ml Output Urine Total 2 ml # Voids 2 # Bowel Movements 1 Laboratory Tests 04/26/16 07:45: White Blood Count 5.5, Red Blood Count 3.74L, Hemoglobin 9.7L, Hematocrit 32.3L , Mean Corpuscular Volume 86, Mean Corpuscular Hemoglobin 26.0L, Mean Corpuscular Hemoglobin Concent 30.2L, Red Cell Distribution Width 14.6, Platelet Count 216, Mean Platelet Volume 6.5, Neutrophils (%) (Auto) 31.0L, Lymphocytes (%) (Auto) 54.0H, Monocytes (%) (Auto) 7.0, Eosinophils (%) (Auto) 6.4H, Basophils (%) (Auto) 1.7, Sodium Level [Pending], Potassium Level [Pending ], Chloride Level [Pending], Carbon Dioxide Level [Pending], Blood Urea Nitrogen [Pending], Creatinine [Pending], Estimat Glomerular Filtration Rate [ Pending], Glucose Level [Pending], Calcium Level [Pending] Height (Feet): 5 Height (Inches): 4.00 Weight (Pounds): 130 Objective PHYSICAL EXAMINATION: GENERAL: Alert, awake, and oriented. The patient is Brazilian speaking and be interpreted. VITAL SIGNS: Blood pressure 133/68, heart rate is 80, oxygen 92%, respirations 18, temperature 97.1 degrees Fahrenheit. Height 5 feet 4 inches and weight is 130 pounds. NECK: Range of motion is full in all directions. No tenderness. No adenopathy. LUNGS: Decreased breath sounds bilaterally. ABDOMEN: Tenderness to palpation. BACK: Range of motion is decreased in flexion and extension with tenderness to paraspinal muscles. No tenderness to trapezius or rhomboid muscles. EXTREMITIES: No cyanosis. No clubbing. With edema noted. NEURO: No changes. ALEXUS SWARTZ Apr 26, 2016 08:31
[2016-04-26 08:49] LABS: ANION GAP 11 (5-15); CALCIUM 10.1 mg/dL (8.6-10.2); CARBON DIOXIDE 27 mEQ/L (20-30); CHLORIDE 101 mEQ/L (98-107); CREATININE 0.8 mg/dL (0.5-0.9); GLOMERULAR FILTRATION RATE > 60 mL/min (>60); HEMOLYSIS 2; POTASSIUM 3.9 mEQ/L (3.4-4.9); SODIUM 139 mEQ/L (135-145)
[2016-04-26 11:32] VITALS: BP 139/76
--- NOTE | 2016-04-26 12:51 | Internal Med Progress Note ---
Subjective Date of Service: Apr 26, 2016 Physician Name Steven Ching Attending Physician Sukhjinder Huff M.D. Current Medications Medications (Trade) Dose Ordered Sig/Osiel Route PRN Reason Start Time Stop Time Status Last Admin Dose Admin Acetaminophen (Tylenol) 650 mg Q4H PRN ORAL FEVER 04/22/16 17:39 05/21/16 20:59 Acetaminophen/ Hydrocodone Bitart ([place] 10/325) 1 ea Q6H PRN ORAL moderate pain 04/23/16 09:45 04/30/16 09:44 Dextrose (Dextrose 50%) STAT PRN IV Hypoglycemia 04/21/16 21:00 05/21/16 20:59 Gabapentin (Neurontin) 300 mg BEDTIME ORAL 04/21/16 21:00 05/21/16 20:59 04/25/16 22:27 Heparin Sodium (Porcine) (Heparin 5000 units/ml) 5,000 units EVERY 12 HOURS SUBQ 04/21/16 21:00 05/21/16 20:59 04/26/16 08:28 Insulin Aspart BEFORE MEALS AND HS SUBQ 04/21/16 21:00 05/21/16 20:59 04/26/16 06:41 Lidocaine (Lidoderm 5% PATCH) 1 patch DAILY TDERMAL 04/23/16 11:00 05/23/16 10:59 04/26/16 08:25 Ondansetron HCl (Zofran ODT) 4 mg Q6H PRN ORAL Nausea & Vomiting 04/23/16 00:15 05/23/16 00:14 04/25/16 16:55 Oxycodone/ Acetaminophen (Percocet 10/325) 1 tab Q4H PRN ORAL severe pain 04/23/16 13:30 04/30/16 13:29 04/26/16 01:20 Sodium Chloride (Sodium Chloride 1000ml bag) 1,000 ml @ 75 mls/hr [id number] IV 04/21/16 21:00 05/21/16 20:59 04/26/16 07:40 Tramadol HCl (Ultram) 100 mg Q6H PRN ORAL Mild Pain (Pain Scale 1-3) 04/25/16 11:30 05/02/16 11:29 04/25/16 10:22 Allergies: Coded Allergies: No Known Allergies (Unverified , 04/21/16) ROS Limited/Unobtainable: No Constitutional: Reports: no symptoms HEENT: Reports: no symptoms Cardiovascular: Reports: no symptoms Respiratory: Reports: no symptoms Gastrointestinal/Abdominal: Reports: no symptoms Genitourinary: Reports: no symptoms Neurologic/Psychiatric: Reports: no symptoms Subjective 70 YO F with pathologic fracture left humerus and renal cell cancer. Cover for [facility] Med-Dr Huff. C/O left arm pain. Await transfer to [facility] Objective Last Vital Signs Date Time Temp Pulse Resp B/P Pulse Ox O2 Delivery O2 Flow Rate FiO2 04/26/16 11:32 96.8 87 18 139/76 97 Room Air Laboratory Tests Test 04/26/16 07:45 White Blood Count 5.5 K/UL (4.8-10.8) Red Blood Count 3.74 M/UL (4.20-5.40) L Hemoglobin 9.7 G/DL (12.0-16.0) L Hematocrit 32.3 % (37.0-47.0) L Mean Corpuscular Volume 86 FL (80-99) Mean Corpuscular Hemoglobin 26.0 PG (27.0-31.0) L Mean Corpuscular Hemoglobin Concent 30.2 G/DL (32.0-36.0) L Red Cell Distribution Width 14.6 % (11.6-14.8) Platelet Count 216 K/UL (150-450) Mean Platelet Volume 6.5 FL (6.5-10.1) Neutrophils (%) (Auto) 31.0 % (45.0-75.0) L Lymphocytes (%) (Auto) 54.0 % (20.0-45.0) H Monocytes (%) (Auto) 7.0 % (1.0-10.0) Eosinophils (%) (Auto) 6.4 % (0.0-3.0) H Basophils (%) (Auto) 1.7 % (0.0-2.0) Sodium Level 139 mEQ/L (135-145) Potassium Level 3.9 mEQ/L (3.4-4.9) Chloride Level 101 mEQ/L (98-107) Carbon Dioxide Level 27 mEQ/L (20-30) Anion Gap 11 (5-15) Blood Urea Nitrogen 12 mg/dL (7-23) Creatinine 0.8 mg/dL (0.5-0.9) Estimat Glomerular Filtration Rate > 60 mL/min (>60) Glucose Level 99 mg/dL (74-106) Calcium Level 10.1 mg/dL (8.6-10.2) Intake and Output 04/25/16 04/26/16 19:00 07:00 Intake Total 1075 ml 900 ml Output Total 2 ml Balance 1075 ml 898 ml Intake Oral 250 ml IV Total 825 ml 900 ml Output Urine Total 2 ml # Voids 2 # Bowel Movements 1 Objective General Appearance: WD/WN, alert, mild distress EENT: normal ENT inspection Neck: non-tender, normal alignment, supple Cardiovascular: normal peripheral pulses, normal rate, regular rhythm, no gallop/murmur, no JVD Respiratory/Chest: chest wall non-tender, no accessory muscle use, decreased breath sounds, crackles/rales, rhonchi - bilaterally, expiratory wheezing Abdomen: normal bowel sounds, non tender, soft, no organomegaly, no mass Extremities: normal range of motion, other - left arm 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 Currently on chemotherapy. See onc note. (2) Diabetes mellitus Assessment & Plan: Cont novolog sliding scale. (3) HTN (hypertension) Assessment & Plan: Admitted with hypotension. (4) Deep venous thrombosis of both lower extremities (5) Humerus fracture Assessment & Plan: See ortho note. Needs orthopedic tumor oncologist consult at [facility] (6) Pathologic fracture (7) Pre-syncope Assessment & Plan: CT brain negative for mets. Assessment/Plan Transfer to [facility] when bed available-see shoe lay out planner note. STEVEN CHING Apr 26, 2016 12:51
--- NOTE | 2016-04-26 15:50 | Consultation ---
Consult Note Consult Note ID CONSULT: Dict# [id number] Assessment/Plan ASSESSMENT: 70 y/o female with: // Probable P.mirabilis UTI r/o stone // CONS bacteremia 1/ c/w contaminant // Leukocytosis, mild - resolved, afebrile // Pathologic proximal left humeral shaft fx - pending transfer [facility] for surgery // Metastatic RCC, on chemo // Chronic BLE DVT // Elevated ESR // NKDA // Full Code PLAN: - continue levaquin d# 1 / -5 - check renal US - f/u final cultures - monitor CBC, temperatures - monitor BMP - pain control - possible transfer to [facility] Thanks! Will follow HOMER LUCAS Apr 26, 2016 15:50
[2016-04-26 16:00] VITALS: BP 131/87
[2016-04-26] MEDS: Levofloxacin 500mg tab ORAL SCH (16:47)
[2016-04-26 20:00] VITALS: BP 116/72
[2016-04-27] VITALS: BP 134/71
--- NOTE | 2016-04-27 00:08 | Consultation ---
DATE OF CONSULTATION: 04/26/2016 INFECTIOUS DISEASE CONSULTATION CONSULTING PHYSICIAN: Dante Marie M.D. REQUESTING PHYSICIAN: Steven Delgado M.D. REASON FOR CONSULTATION: Urinary tract infection. HISTORY OF PRESENT ILLNESS: This is a 70-year-old female with metastatic renal cell carcinoma and chemotherapy admitted on 04/21/2016 with left arm pain. X-ray showed a proximal left humeral shaft fracture, possibly pathologic. She had mild leukocytosis on admission and is afebrile. Blood cultures grew coagulase-negative Staph in 1/4 bottles. Urine culture grew greater than 100,000 colony-forming units of Proteus mirabilis. Leukocytosis is now resolved. The patient has remained afebrile. The patient was started on Levaquin today and ID now consulted to assist in management. PAST MEDICAL HISTORY: 1. Chronic bilateral lower extremity DVTs. 2. Metastatic renal cell carcinoma. 3. Anemia of chronic disease. 4. Osteoarthritis. PAST SURGICAL HISTORY: Bilateral total knee arthroplasty with explantation on the right in 02/2016. ALLERGIES: No known drug allergies. MEDICATIONS: 1. Levaquin day #1. 2. Subcutaneous heparin. 3. Lidocaine patch. 4. Gabapentin. FAMILY HISTORY: Noncontributory. SOCIAL HISTORY: Denies active tobacco, alcohol, or illicit drug abuse. REVIEW OF SYSTEMS: As per history of present illness. Ten systems reviewed. All pertinent positives and negatives noted. PHYSICAL EXAMINATION: VITAL SIGNS: Maximum temperature 98.1 degrees, blood pressure 139/76, heart rate in the 80s, respiratory rate 18, and saturating 97% on room air. GENERAL: No apparent distress. Nontoxic appearing. CARDIOVASCULAR: Regular rate and rhythm. No murmurs. PULMONARY: Clear to auscultation bilaterally. ABDOMEN: Bowel sounds present. Soft, nondistended, and nontender. EXTREMITIES: Left arm in a sling. LABORATORY DATA: White blood cell count 5.5, hemoglobin 9.7, and platelets 216,000. Sodium 139, potassium 3.9, chloride 101, bicarbonate 27, BUN 22, and creatinine 0.8. ESR is 92. INR is 1. Troponin is negative x1. AST 21, ALT 9, and alkaline phosphatase 149. Total bilirubin is 0.9. Albumin is 3.4. MICROBIOLOGY: 1. On 04/21/2016, blood culture coagulase-negative Staph in 1/4 bottles. 2. On 04/21/2016, urine culture greater than 100,000 colony-forming units of Proteus mirabilis. IMAGIN. On 04/21/2016, CT of the head, no acute findings. 2. On 04/21/2016, chest x-ray, no acute findings. ASSESSMENT: 1. Probable Proteus mirabilis urinary tract infection rule out stone. 2. Coagulase-negative Staph bacteremia in 1/4 bottles consistent with contaminant. 3. Leukocytosis, mild and now resolved and afebrile. 4. Pathologic proximal left humeral shaft fracture. Pending transfer to [facility], [place] for surgery. 5. Metastatic renal cell carcinoma, on chemotherapy. 6. Chronic bilateral lower extremity deep vein thrombosis. 7. Elevated erythrocyte sedimentation rate. 8. No known drug allergies. 9. Full Code. PLAN: 1. Continue Levaquin day #1 of 3 to 5. 2. Check renal ultrasound. 3. Follow up final cultures. 4. Monitor CBC and temperatures. 5. Monitor BMP. 6. Pain control. 7. Possible transfer to [facility], [place]. Thank you. We will follow. Dante Marie M.D. DR: JOON JOB#: [id number] CC:
[2016-04-27 04:14] VITALS: BP 144/75
[2016-04-27] MEDS: NovoLOG Insulin Flexpen SUBQ SCH (06:30)
[2016-04-27 07:46] VITALS: BP 139/68
--- NOTE | 2016-04-27 08:26 | General Progress Note ---
Assessment/Plan Assessment/Plan (1) Left humeral shaft fracture most likely secondary to metastasis from renal cell cancer (2) Malignant renal cell cancer with metastases to bone, lungs (3) Left Upper Extremity pain Pt will be continued on Tramadol, [place] and Percocet. Pt was d/w Dr. Irvin and he concurred. Subjective Date patient seen: Apr 27, 2016 Time patient seen: 07:30 - am Allergies: Coded Allergies: No Known Allergies (Unverified , 04/21/16) Subjective REVIEW OF SYSTEMS: Denies rash, fever, chills, sweating, dizziness, drowsiness, blurred vision, sore throat, or change in her weight. No shortness of breath or chest pain. No nausea, vomiting, or blood in stool or urine. No bowel or bladder. There is no dysuria. She is complaining of left upper extremity pain and generalized weakness. SUBJECTIVE: Patient is being interpreted due to speaking Turkmen. Pain is worse with movement reduced on the Percocet and tramadol. Objective Last 24 Hour Vital Signs Date Time Temp Pulse Resp B/P Pulse Ox O2 Delivery O2 Flow Rate FiO2 04/27/16 07:46 97.9 71 18 139/68 100 Room Air 04/27/16 04:14 98.0 88 20 144/75 96 Room Air 04/27/16 04:00 73 04/27/16 00:00 83 04/27/16 00:00 97.9 82 20 134/71 97 Room Air 04/26/16 20:00 97.4 80 20 116/72 98 Room Air 04/26/16 20:00 84 04/26/16 16:00 95 04/26/16 16:00 97.6 21 131/87 96 Room Air 04/26/16 12:00 83 04/26/16 11:32 96.8 87 18 139/76 97 Room Air Intake and Output 04/26/16 04/27/16 19:00 07:00 Intake Total 1325 ml 920 ml Output Total 1100 ml 600 ml Balance 225 ml 320 ml Intake Oral 500 ml IV Total 825 ml 920 ml Output Urine Total 1100 ml 600 ml # Voids 4 Height (Feet): 5 Height (Inches): 4.00 Weight (Pounds): 130 Objective PHYSICAL EXAMINATION: GENERAL: Alert, awake, and oriented. The patient is Turkmen speaking and be interpreted. VITAL SIGNS: Blood pressure 133/68, heart rate is 80, oxygen 92%, respirations 18, temperature 97.1 degrees Fahrenheit. Height 5 feet 4 inches and weight is 130 pounds. NECK: Range of motion is full in all directions. No tenderness. No adenopathy. LUNGS: Decreased breath sounds bilaterally. ABDOMEN: Tenderness to palpation. BACK: Range of motion is decreased in flexion and extension with tenderness to paraspinal muscles. No tenderness to trapezius or rhomboid muscles. EXTREMITIES: No cyanosis. No clubbing. With edema noted. NEURO: No changes. ALEXUS SWARTZ Apr 27, 2016 08:26
[2016-04-27] MEDS: Levofloxacin 500mg tab ORAL SCH (08:47)
[2016-04-27] MEDS: Heparin 5000 units/ml inj SUBQ SCH (08:49)
[2016-04-27] MEDS ORDERED: LEVOFLOXACIN500 MG ORAL (09:05)
--- NOTE | 2016-04-28 09:16 | Discharge Summary ---
Discharge Summary Hospital Course Date of Admission Apr 21, 2016 at 16:35 Date of Discharge Apr 27, 2016 at 10:00 Admitting Diagnosis SYNCOPE,FX HUMEROUS HPI Dior Bower is a 70 year old female who was admitted on Apr 21, 2016 at 16:35 for Syncope, Fractured Humerous Consultations ortho -dr Richey pain specialist - dr Rosa ID - dr Marie Hospital Course dc summary #[id number] Discharge Medications Continued Medications: Acetaminophen (Acetaminophen) 650 Mg/20.3 Ml Solution 500 MG ORAL Q6H PRN for Prn Headache/Temp > 101, ML 0 Refills Gabapentin* (Gabapentin*) 300 Mg Capsule 300 MG ORAL BEDTIME, CAP Glimepiride* (Glimepiride*) 1 Mg Tablet 1 MG ORAL BEFORE BREAKFAST, TAB Levofloxacin (Levofloxacin*) 500 Mg Tablet 500 MG ORAL DAILY, TAB Discharge Discharge Disposition Patient was discharged to Home (01) Discharge Diagnoses: Discharge Instructions Discharge Instructions Special Instructions I have been assigned to complete a D/C Summary on this account. I was not involved in the patient management Valentine Hicks NP (Vanchtein) Apr 28, 2016 09:16
--- NOTE | 2016-04-28 13:27 | Discharge Summary ---
Discharge Summary Hospital Course Date of Admission Apr 21, 2016 at 16:35 Date of Discharge Apr 27, 2016 at 10:00 Admitting Diagnosis SYNCOPE,FX HUMEROUS HPI Dior Bower is a 70 year old female who was admitted on Apr 21, 2016 at 16:35 for Syncope, Fractured Humerous Hospital Course Dictated for Casie Villatoro-Dr Huff no. [id number]. Discharge Discharge Disposition Patient was discharged to Home (01) Discharge Diagnoses: CHRISTIANO CHING Apr 28, 2016 13:27
--- NOTE | 2016-04-29 05:07 | Discharge Summary ---
DATE OF ADMISSION: 04/21/2016 DATE OF DISCHARGE: 04/27/2016 ADMITTING DIAGNOSES: 1. Pathologic left humerus fracture. 2. Renal cell adenocarcinoma. 3. Diabetes type 2. 4. Hypertension. 5. Chronic deep venous thrombosis of the legs. DISCHARGE DIAGNOSES: 1. Pathologic left humerus fracture. 2. Renal cell adenocarcinoma with metastases to the lungs. 3. Diabetes type 2. 4. Hypertension. 5. Chronic deep venous thrombosis of the legs. HOSPITAL COURSE BY PROBLEM LIST: 1. Pathologic left humerus fracture. An orthopedic consultation was obtained with Dr. Ana María Richey. Since the fracture is pathologic secondary to metastases, it was recommended the patient be seen by Dr. Ontiveros or Dr. Slaughter at [facility]. The patient decided to sign out on 04/27/2016. The patient is to follow up with Dr. Ontiveros or Dr. Slaughter at [facility] orthopedic tumor oncology department. 2. Renal cell adenocarcinoma with metastases to the lungs. The patient was evaluated by Hematology/Oncology, Dr. Mcmullen. The patient is to follow up with her private oncologist as an outpatient. 3. Diabetes type 2. The patient remained on a NovoLog sliding scale during the hospitalization. The patient is to follow up with her primary care physician. 4. Hypertension. The patient remained on clonidine 0.1 mg as needed. Blood pressure is well controlled during the hospitalization. 5. Chronic deep venous thrombosis of bilateral lower extremities, stable. DISCHARGE MEDICATIONS: Please refer to discharge medication list. DISCHARGE INSTRUCTIONS: The patient discharged home today on 04/27/2016. The patient is to follow up with Dr. Ontiveros or Dr. Slaughter at the [facility] orthopedic tumor oncology department. Steven Delgado M.D. DR: AUBRIE JOB#: [id number] CC:
--- NOTE | 2016-04-29 05:37 | Discharge Summary 2 SIG ---
DATE OF ADMISSION: 04/21/2016 DATE OF DISCHARGE: 04/27/2016 REASON FOR HOSPITALIZATION: 70-year-old female with a history of metastatic renal adenocarcinoma with metastasis to the lung and bones as well as medical history of diabetes, hypertension, chronic DVT presented after being seen at oncologist office and having syncopal episode. The patient on the chemotherapy under Dr. Toro. The patient also reported left arm pain. There was no associated shortness of breath. No chest pain. X-ray in the emergency room revealed left proximal femoral shaft fracture, appears to be consistent with a pathological fracture likely metastatic. ADMITTING DIAGNOSIS: Include: 1. Left humeral shaft fracture, possibly metastatic. 2. Metastatic renal cell carcinoma. 3. Pre-syncope. HOSPITAL STAY: The patient was admitted to the hospital. Orthopedic and pain management consults were requested. Orthopedic surgeon seen the patient and recommended transfer to [facility] for definite orthopedic treatment for ortho tumor oncology team. Lu brace was ordered for the comfort. Per orthopedic surgeon the fracture appeared to be consistent with a pathological fracture secondary to metastasis to bone. Pain specialist seen the patient. Pain management regimen optimized, pain controlled with the current regimen. CT brain was negative for any evidence of metastasis. The patient initially presented with leukocytosis. Urine culture revealed growth of Proteus, blood culture / Staph coag-negative. Infectious Disease doctor consulted. Antibiotic for urinary tract infection administered, blood culture contaminated as per the ID. The patient has history of diabetes and hypertension. Blood sugar was managed with the sliding scale of insulin and was stable. No evidence of hypoglycemia. No further evidence of syncopal or presyncopal episode. Antihypertensive medication on hold. EKG revealed normal sinus rhythm. No evidence of arrhythmia. Troponin negative. No antihypertensive medications at this time. Pre syncope likely vasovagal versus side effect of pain management. The patient was discharged home. DISCHARGE DIAGNOSIS: pathological left humerus fracture renal cell adenocarcinoma DM presyncope HTN DISCHARGE MEDICATIONS: see medications reconciliation list DISCHARGE INSTRUCTIONS: Detailed explanations were given to the daughter. The patient will follow up with chemotherapy with Dr. Toro. The patient will go to [facility] emergency room for admission, since unable to be transferred. The patient will need definite operative treatment by ortho oncologist team, Sukhjinder Huff MD I have been assigned to dictate discharge summary on this account and I was not involved in the patient's management. Valentine Myrickaquiles N.PSuzan DR: MARLI JOB#: [id number] CC: JOSE ROBERTO
--- NOTE | 2016-05-04 14:56 | Diagnostic Imaging Report ---
Indications: Flank pain Technique: Transabdominal real-time grayscale and duplex Doppler imaging of the kidneys, retroperitoneum, and urinary bladder was performed Findings: Comparison: None Right kidney measures 9.5 cm in length. Normal contour, echotexture, cortical thickness. Multiple circumscribed anechoic cortical foci up to 10 mm. No stones, other focal lesions, hydronephrosis, or obvious perinephric abnormalities. Left kidney measures 10.4 cm in length. Normal contour, echotexture, cortical thickness. 3 cm focal hypoechoic area suggested in the interpolar cortex region. No stones, other focal lesions, hydronephrosis, or obvious perinephric abnormalities. The intrahepatic portion of inferior vena cava is patent and normal caliber. The urinary bladder is mildly distended, postvoid volume 86 cc.,. Impression: No evidence of nephrolithiasis or hydronephrosis Right renal cortical cysts Questionable 3 cm mass versus hypertrophied column of Curtis left kidney. Contrast-enhanced CT scan or MRI of the kidneys recommended for further evaluation. Moderate post void residual in urinary bladder
== END 2016-04-27 10:00 | disposition home or self-care (01) | DRG 543 ==
LOC: EDBD 10:59 → EDSEX 10:59 → EMR 14:17 → EDBEDREQ 16:02 → 2E 16:35 → EDBEDREQ 21:49
DX: M84.522A Pathological fracture in neoplastic disease, left humerus, initial encounter for fracture (principal); C64.9 Malignant neoplasm of unspecified kidney, except renal pelvis; C78.00 Secondary malignant neoplasm of unspecified lung; C79.51 Secondary malignant neoplasm of bone; I95.9 Hypotension, unspecified; E46 Unspecified protein-calorie malnutrition; I82.503 Chronic embolism and thrombosis of unspecified deep veins of lower extremity, bilateral; N39.0 Urinary tract infection, site not specified; E11.9 Type 2 diabetes mellitus without complications; I10 Essential (primary) hypertension; B96.4 Proteus (mirabilis) (morganii) as the cause of diseases classified elsewhere; Z68.22 Body mass index [BMI] 22.0-22.9, adult; Z96.653 Presence of artificial knee joint, bilateral
CPT/HCPCS: 36415; 70470; 71010; 76775; 80048; 80053; 81003; 82550; 82962; 83880; 84484; 85025; 85610; 85651; 85730; 87040; 87086; 87181; 93005; J1815; J2405